=== PATIENT | male | born 1945 | race Caucasian/White ===

== ENCOUNTER 2019-08-08 17:27 | Inpatient (IN) ==
[2019-08-08] MEDS ORDERED: Piperacillin/Tazobactam 3.375 GM in 0.9 % Sodium Chloride Mini Bag 100 ML IVPB ONE (17:44)
[2019-08-08] MEDS ORDERED: Ondansetron 4 MG/2 ML VIAL IVP ONE (17:44)
[2019-08-08] MEDS ORDERED: *HR* FentaNYL (PF) 100 MCG/2 ML VIAL IVP ONE (17:44)
[2019-08-08] MEDS ORDERED: 0.9 % Sodium Chloride 1,000 ML IVC ONE (17:44)
[2019-08-08] MEDS ORDERED: Naloxone 0.4 MG/ML INJ IVP PRN (18:29)
[2019-08-08] MEDS ORDERED: Acetaminophen 325 MG TABLET PO PRN (18:29)
[2019-08-08] MEDS ORDERED: Ondansetron 4 MG/2 ML VIAL IVP PRN (18:29)
[2019-08-08 18:59] LABS: Albumin 3.5 g/dL (3.5-5.7); Albumin/Globulin Ratio 0.9 (1.1-2.2); Bilirubin,Direct 0.2 mg/dL (0.0-0.2); Bilirubin,Indirect 0.2 mg/dL (0.0-1.0); Bilirubin,Total 0.4 mg/dL (0.3-1.0); Globulin 3.8 g/dL (2.4-3.5); Total Protein 7.3 g/dL (6.4-8.9)
[2019-08-08] MEDS ORDERED: traZODone 50 MG TABLET PO PRN (19:51)
[2019-08-08] MEDS: Loratadine 10 MG TABLET PO SCH (21:58)
[2019-08-08] MEDS: Morphine Sulfate ER (12 HR) 15 MG TABLET.ER PO SCH (21:58)
[2019-08-08] MEDS: Primidone 50 MG TABLET PO SCH (21:59)
[2019-08-08] MEDS: Acyclovir 200 MG CAPSULE PO SCH (21:59)
[2019-08-08] MEDS: 0.9 % Sodium Chloride 1,000 ML IVC SCH (21:59)
[2019-08-08] MEDS: (Ketotifen Fumarate [Zaditor] 1 DROP) OP SCH (22:02)
[2019-08-09 01:20] LABS: Hematocrit 25.1 % (37.5-50.1); Mean Corpuscular HGB Conc 31.9 g/dL (31.6-35.5); Mean Corpuscular Hemoglobin 33.9 pg (28.0-33.3); Mean Corpuscular Volume 106.4 fL (83.0-100.0); Platelet Count 122 K/mcL (140-400); Red Blood Count 2.36 M/mcL (4.19-5.50); Red Cell Distribution Width 14.6 % (11.5-14.5); White Blood Count 6.2 K/mcL (4.3-11.1)
[2019-08-09 01:38] LABS: Calcium 9.2 mg/dL (8.6-10.3); Magnesium 2.1 mg/dL (1.6-2.6); Potassium 4.3 mEq/L (3.5-5.1)
[2019-08-09] MEDS: CLEAR EYES NATURAL TEARS 15 ML BOTTLE BOTH EYES SCH ×7 (02:14→23:50)
[2019-08-09] MEDS: Lacri-Lube 3.5 GM TUBE OP SCH ×2 (02:15→19:58)
[2019-08-09] MEDS ORDERED: *HR* Dextrose 50 % in Water (Vial) 50 ML VIAL IVP PRN (07:44)
[2019-08-09] MEDS ORDERED: Dextrose Gel 15 GM/37.5 ML TUBE PO PRN ×2 (07:44)
[2019-08-09] MEDS ORDERED: D5% in Water 1,000 ML IVC PRN (07:44)
[2019-08-09 08:50] LABS: Basophils % 0.2 %; Eosinophils % 0.4 %; Hematocrit 26.1 % (37.5-50.1); Immature Granulocytes % 0.2 % (0-4); Lymphocytes # 1.2 K/mcL (0.6-4.6); Lymphocytes % 21.9 %; Mean Corpuscular HGB Conc 30.7 g/dL (31.6-35.5); Mean Corpuscular Hemoglobin 32.8 pg (28.0-33.3); Mean Platelet Volume 11.7 fL (9.4-12.4); Monocytes # 0.6 K/mcL (0.0-1.3); Monocytes % 9.8 %; Neutrophils # 3.8 K/mcL (1.6-8.9); Platelet Count 115 K/mcL (140-400); Red Blood Count 2.44 M/mcL (4.19-5.50); Red Cell Distribution Width 14.5 % (11.5-14.5); Segmented Neutrophils % 67.5 %; White Blood Count 5.6 K/mcL (4.3-11.1)
[2019-08-09 08:54] LABS: Albumin 3.2 g/dL (3.5-5.7); Bilirubin,Direct 0.1 mg/dL (0.0-0.2); Bilirubin,Indirect 0.3 mg/dL (0.0-1.0); Bilirubin,Total 0.4 mg/dL (0.3-1.0); Globulin 3.3 g/dL (2.4-3.5); Total Protein 6.5 g/dL (6.4-8.9)
[2019-08-09] MEDS ORDERED: 0.9 % Sodium Chloride 500 ML ONE (09:28)
[2019-08-09] MEDS ORDERED: *HR* FentaNYL (PF) 100 MCG/2 ML VIAL IVP ONE (09:37)
[2019-08-09] MEDS ORDERED: *HR* Midazolam HCl 2 MG/2 ML VIAL IVP ONE (09:37)
[2019-08-09] MEDS: 0.9 % Sodium Chloride 1,000 ML IVC SCH ×2 (11:08→11:09)
[2019-08-09] MEDS: Aspirin Enteric Coated 81 MG Tablet PO SCH (11:09)
[2019-08-09] MEDS: amLODIPine 5 MG TABLET PO SCH (11:09)
[2019-08-09] MEDS: Acyclovir 200 MG CAPSULE PO SCH ×2 (11:09→20:00)
[2019-08-09] MEDS: Primidone 50 MG TABLET PO SCH ×2 (11:10→20:00)
[2019-08-09] MEDS: Morphine Sulfate ER (12 HR) 15 MG TABLET.ER PO SCH ×2 (11:11→20:00)
[2019-08-09] MEDS: *HR* Amiodarone 200 MG TABLET PO SCH (11:11)
[2019-08-09] MEDS: Piperacillin/Tazobactam 3.375 GM in 0.9 % Sodium Chloride Mini Bag 100 ML IVPB SCH ×3 (11:12→23:47)
[2019-08-09] MEDS: (Ketotifen Fumarate [Zaditor] 1 DROP) OP SCH ×2 (11:13→19:56)
[2019-08-09] MEDS: TERAZOSIN PO SCH ×2 (11:33→20:00)
[2019-08-09] MEDS: Insulin LISPRO 300 UNITS/3 ML VIAL SQ SCH ×3 (13:04→23:50)
[2019-08-09] MEDS: Loratadine 10 MG TABLET PO SCH (20:00)
[2019-08-10 01:01] LABS: Basophils % 0.5 %; Eosinophils % 0.2 %; Hematocrit 26.5 % (37.5-50.1); Hemoglobin 8.2 g/dL (12.9-16.9); Immature Granulocytes % 0.2 % (0-4); Lymphocytes # 1.2 K/mcL (0.6-4.6); Mean Corpuscular HGB Conc 30.9 g/dL (31.6-35.5); Mean Corpuscular Hemoglobin 33.2 pg (28.0-33.3); Mean Corpuscular Volume 107.3 fL (83.0-100.0); Mean Platelet Volume 11.9 fL (9.4-12.4); Monocytes # 0.3 K/mcL (0.0-1.3); Monocytes % 7.7 %; Neutrophils # 2.5 K/mcL (1.6-8.9); Platelet Count 121 K/mcL (140-400); Red Blood Count 2.47 M/mcL (4.19-5.50); Red Cell Distribution Width 14.5 % (11.5-14.5); Segmented Neutrophils % 61.4 %; White Blood Count 4.1 K/mcL (4.3-11.1)
[2019-08-10 01:20] LABS: Calcium 9.5 mg/dL (8.6-10.3); Magnesium 2.1 mg/dL (1.6-2.6); Phosphorous 3.6 mg/dL (2.7-4.5); Potassium 4.3 mEq/L (3.5-5.1)
[2019-08-10 01:21] LABS: Albumin 3.3 g/dL (3.5-5.7); Albumin/Globulin Ratio 0.9 (1.1-2.2); Bilirubin,Direct 0.1 mg/dL (0.0-0.2); Bilirubin,Indirect 0.3 mg/dL (0.0-1.0); Bilirubin,Total 0.4 mg/dL (0.3-1.0); Globulin 3.6 g/dL (2.4-3.5); Total Protein 6.9 g/dL (6.4-8.9)
[2019-08-10] MEDS: CLEAR EYES NATURAL TEARS 15 ML BOTTLE BOTH EYES SCH ×6 (04:40→23:30)
[2019-08-10 04:56] LABS: Estimated Average Glucose 166 mg/dl; Hemoglobin A1C 7.4 %
[2019-08-10] MEDS: Insulin LISPRO 300 UNITS/3 ML VIAL SQ SCH ×4 (05:28→20:30)
[2019-08-10] MEDS: Piperacillin/Tazobactam 3.375 GM in 0.9 % Sodium Chloride Mini Bag 100 ML IVPB SCH ×3 (10:00→23:30)
[2019-08-10] MEDS: TERAZOSIN PO SCH ×2 (10:02→20:24)
[2019-08-10] MEDS: amLODIPine 5 MG TABLET PO SCH (10:02)
[2019-08-10] MEDS: *HR* Amiodarone 200 MG TABLET PO SCH (10:02)
[2019-08-10] MEDS: Primidone 50 MG TABLET PO SCH ×2 (10:02→20:23)
[2019-08-10] MEDS: Morphine Sulfate ER (12 HR) 15 MG TABLET.ER PO SCH ×2 (10:03→20:24)
[2019-08-10] MEDS: Aspirin Enteric Coated 81 MG Tablet PO SCH (10:03)
[2019-08-10] MEDS: (Ketotifen Fumarate [Zaditor] 1 DROP) OP SCH ×2 (10:04→20:18)
[2019-08-10] MEDS: Acyclovir 200 MG CAPSULE PO SCH ×2 (10:20→20:24)
[2019-08-10] MEDS: 0.9 % Sodium Chloride 1,000 ML IVC SCH (10:21)
[2019-08-10] MEDS: Lacri-Lube 3.5 GM TUBE OP SCH (20:18)
[2019-08-10] MEDS: Loratadine 10 MG TABLET PO SCH (20:23)
[2019-08-11] MEDS: CLEAR EYES NATURAL TEARS 15 ML BOTTLE BOTH EYES SCH ×7 (03:26→23:23)
[2019-08-11 05:20] LABS: Basophils % 0.3 %; Eosinophils # 0.1 K/mcL (0.0-0.6); Eosinophils % 1.3 %; Hematocrit 25.5 % (37.5-50.1); Hemoglobin 7.9 g/dL (12.9-16.9); Immature Granulocytes % 0.5 % (0-4); Lymphocytes # 1.4 K/mcL (0.6-4.6); Lymphocytes % 34.8 %; Mean Corpuscular Hemoglobin 32.9 pg (28.0-33.3); Mean Corpuscular Volume 106.3 fL (83.0-100.0); Mean Platelet Volume 11.2 fL (9.4-12.4); Monocytes # 0.3 K/mcL (0.0-1.3); Monocytes % 8.5 %; Neutrophils # 2.1 K/mcL (1.6-8.9); Platelet Count 135 K/mcL (140-400); Red Cell Distribution Width 14.5 % (11.5-14.5); Segmented Neutrophils % 54.6 %; White Blood Count 3.9 K/mcL (4.3-11.1)
[2019-08-11 06:00] LABS: Calcium 9.2 mg/dL (8.6-10.3); Magnesium 2.1 mg/dL (1.6-2.6); Potassium 4.1 mEq/L (3.5-5.1)
[2019-08-11] MEDS: Insulin LISPRO 300 UNITS/3 ML VIAL SQ SCH ×4 (08:28→20:04)
[2019-08-11] MEDS: *HR* Amiodarone 200 MG TABLET PO SCH (08:29)
[2019-08-11] MEDS: Primidone 50 MG TABLET PO SCH ×2 (08:29→20:06)
[2019-08-11] MEDS: amLODIPine 5 MG TABLET PO SCH (08:29)
[2019-08-11] MEDS: Morphine Sulfate ER (12 HR) 15 MG TABLET.ER PO SCH ×2 (08:30→20:06)
[2019-08-11] MEDS: Acyclovir 200 MG CAPSULE PO SCH ×2 (08:30→20:06)
[2019-08-11] MEDS: TERAZOSIN PO SCH ×2 (08:30→20:05)
[2019-08-11] MEDS: Aspirin Enteric Coated 81 MG Tablet PO SCH (08:30)
[2019-08-11] MEDS: Piperacillin/Tazobactam 3.375 GM in 0.9 % Sodium Chloride Mini Bag 100 ML IVPB SCH ×3 (08:32→23:23)
[2019-08-11] MEDS: (Ketotifen Fumarate [Zaditor] 1 DROP) OP SCH ×2 (08:34→20:04)
[2019-08-11] MEDS: Lacri-Lube 3.5 GM TUBE OP SCH (20:03)
[2019-08-11] MEDS: Loratadine 10 MG TABLET PO SCH (20:06)
[2019-08-12] MEDS: CLEAR EYES NATURAL TEARS 15 ML BOTTLE BOTH EYES SCH ×2 (03:45→07:57)
[2019-08-12 06:54] LABS: Basophils % 0.7 %; Eosinophils # 0.1 K/mcL (0.0-0.6); Eosinophils % 1.1 %; Hemoglobin 8.8 g/dL (12.9-16.9); Immature Granulocytes % 0.5 % (0-4); Lymphocytes # 1.9 K/mcL (0.6-4.6); Lymphocytes % 41.7 %; Mean Corpuscular HGB Conc 31.4 g/dL (31.6-35.5); Mean Corpuscular Hemoglobin 33.1 pg (28.0-33.3); Mean Corpuscular Volume 105.3 fL (83.0-100.0); Mean Platelet Volume 11.4 fL (9.4-12.4); Monocytes # 0.4 K/mcL (0.0-1.3); Monocytes % 8.3 %; Neutrophils # 2.1 K/mcL (1.6-8.9); Nucleated Red Blood Cells 0.7 /100 WBC (0); Platelet Count 148 K/mcL (140-400); Red Blood Count 2.66 M/mcL (4.19-5.50); Red Cell Distribution Width 14.6 % (11.5-14.5); Segmented Neutrophils % 47.7 %; White Blood Count 4.4 K/mcL (4.3-11.1)
[2019-08-12 07:15] LABS: Calcium 9.6 mg/dL (8.6-10.3); Phosphorous 3.2 mg/dL (2.7-4.5); Potassium 3.8 mEq/L (3.5-5.1)
[2019-08-12 07:16] VITALS: BP 129/83
[2019-08-12] MEDS: TERAZOSIN PO SCH (07:54)
[2019-08-12] MEDS: Morphine Sulfate ER (12 HR) 15 MG TABLET.ER PO SCH (07:55)
[2019-08-12] MEDS: Primidone 50 MG TABLET PO SCH (07:55)
[2019-08-12] MEDS: Piperacillin/Tazobactam 3.375 GM in 0.9 % Sodium Chloride Mini Bag 100 ML IVPB SCH (07:55)
[2019-08-12] MEDS: Acyclovir 200 MG CAPSULE PO SCH (07:55)
[2019-08-12] MEDS: Aspirin Enteric Coated 81 MG Tablet PO SCH (07:55)
[2019-08-12] MEDS: *HR* Amiodarone 200 MG TABLET PO SCH (07:55)
[2019-08-12] MEDS: amLODIPine 5 MG TABLET PO SCH (07:55)
[2019-08-12] MEDS: Insulin LISPRO 300 UNITS/3 ML VIAL SQ SCH (07:56)
[2019-08-12] MEDS: (Ketotifen Fumarate [Zaditor] 1 DROP) OP SCH (07:57)
== END 2019-08-12 11:33 | disposition home or self-care (01) | DRG 863 ==
LOC: 3ANU 17:27 → EMEROOARM 17:27 → SUATTDRO 19:24 → OBSVTOIN 19:24 → 3ANU 20:27
PROVIDERS: ADMIT Internal Medicine; ATTEND Internal Medicine
PROC: IRDRAIN (2019-08-09 09:30)